=== PATIENT | female | born 1965 | race Caucasian/White ===

== ENCOUNTER 2022-04-03 08:32 | Emergency (ER) | payer MEDICAID ==
[~2022-04-03] VITALS: Ht 165.1 cm; Wt 54.5 kg
[2022-04-03 08:34] VITALS: BP 130/61
[2022-04-03] MEDS ORDERED: acetaminophen 325mg tablet PO ONE (10:20)
[2022-04-03 12:44] LABS: BASOPHILS # (AUTO) 0.1 X10'3 (0-0.2); BASOPHILS % (AUTO) 0.8 % (0-1); EOSINOPHILS # (AUTO) 0.1 X10'3 (0-0.9); EOSINOPHILS % (AUTO) 0.5 % (0-6); HEMOGLOBIN 11.1 g/dl (12.0-16.0); LYMPHOCYTES # (AUTO) 2.3 X10'3 (1.1-4.8); LYMPHOCYTES % (AUTO) 17.6 % (21-51); MEAN CORPUSCULAR HEMOGLOBIN 32.7 PG (27.0-31.0); MEAN CORPUSCULAR HGB CONC 32.6 g/dL (33.0-36.5); MEAN CORPUSCULAR VOLUME 100.1 FL (78-98); MONOCYTES # (AUTO) 1.6 X10'3 (0-0.9); MONOCYTES % (AUTO) 12.5 % (2-12); NEUTROPHILS % (AUTO) 68.6 % (42-75); PLATELET COUNT 352 X10'3 (140-440); RED CELL DISTRIBUTION WIDTH 13.4 % (11.5-14.5); WHITE BLOOD COUNT 13.1 X10'3 (4.5-11.0)
[2022-04-03 13:53] LABS: ALANINE AMINOTRANSFERASE 38 U/L (12-78); ALBUMIN 2.7 G/DL (3.4-5.0); ALBUMIN/GLOBULIN RATIO 0.6 (1.1-1.5); ALKALINE PHOSPHATASE 85 IU/L (46-116); ANION GAP 9 (8-16); ASPARTATE AMINO TRANSFERASE 26 U/L (10-37); BILIRUBIN,TOTAL 0.3 MG/DL (0.1-1.0); BLOOD UREA NITROGEN 14 MG/DL (7-18); BUN/CREATININE RATIO 21.9 (6.6-38.0); CALCIUM 8.9 MG/DL (8.5-10.1); CHLORIDE 101 MMOL/L (99-107); CREATININE 0.64 MG/DL (0.40-0.90); GLUCOSE 105 MG/DL (70-104); POTASSIUM 3.9 MMOL/L (3.5-5.1); SODIUM 133 MMOL/L (135-145); TOTAL CARBON DIOXIDE 23.1 MMOL/L (24-32); TOTAL PROTEIN 7.3 G/DL (6.4-8.2); eGFR > 90 ML/MIN
== END 2022-04-03 14:14 | disposition home or self-care (01) ==
LOC: ER 08:33
DX: R09.89 Other specified symptoms and signs involving the circulatory and respiratory systems (principal); R53.81 Other malaise; H92.02 Otalgia, left ear; R07.89 Other chest pain
CPT/HCPCS: 36415; 71045; 80053; 84484; 85025; 93005; 99285

== ENCOUNTER 2022-04-05 08:48 | Emergency (ER) | payer MEDICAID ==
[~2022-04-05] VITALS: Ht 165.1 cm; Wt 54.0 kg
[2022-04-05 08:59] VITALS: BP 119/92
[2022-04-05] MEDS ORDERED: acetaminophen 325mg tablet PO ONE (10:40)
== END 2022-04-05 11:10 | disposition home or self-care (01) ==
LOC: ER 08:48
DX: J06.9 Acute upper respiratory infection, unspecified (principal); Z20.822 Contact with and (suspected) exposure to COVID-19; B97.89 Other viral agents as the cause of diseases classified elsewhere
CPT/HCPCS: 87502; 87503; 87635; 99283; C9803

== ENCOUNTER 2022-04-10 07:34 | Emergency (ER) | payer MEDICAID ==
[~2022-04-10] VITALS: Ht 165.1 cm; Wt 56.8 kg
[2022-04-10 08:24] VITALS: BP 92/67
== END 2022-04-10 11:05 | disposition home or self-care (01) ==
LOC: ER 07:34
DX: B34.9 Viral infection, unspecified (principal)
CPT/HCPCS: 99282

== ENCOUNTER 2022-05-13 09:41 | Emergency (ER) | payer MEDICAID ==
[~2022-05-13] VITALS: Ht 165.1 cm; Wt 59.1 kg
[2022-05-13 10:01] VITALS: BP 118/73
[2022-05-13] MEDS ORDERED: LORA-269 PO (11:02)
[2022-05-13] MEDS ORDERED: DULO-31 PO (11:02)
[2022-05-13] MEDS ORDERED: FLUT16SP2 BOTHNARES (13:01)
== END 2022-05-13 11:35 | disposition home or self-care (01) ==
LOC: ER 09:41
DX: F10.10 Alcohol abuse, uncomplicated (principal); R09.81 Nasal congestion; F17.200 Nicotine dependence, unspecified, uncomplicated; Z72.89 Other problems related to lifestyle; Z79.899 Other long term (current) drug therapy; Y90.9 Presence of alcohol in blood, level not specified
CPT/HCPCS: 99283

== ENCOUNTER 2022-05-26 12:48 | Emergency (ER) | payer MEDICAID ==
[~2022-05-26 12:48] MED LIST: DULO-31 PO; FLUT16SP2 BOTHNARES; LORA-269 PO
== END 2022-05-26 13:47 | disposition left against medical advice (07) ==
LOC: ER 12:49
DX: Z00.00 Encounter for general adult medical examination without abnormal findings (principal); F10.10 Alcohol abuse, uncomplicated; Z79.899 Other long term (current) drug therapy; Z53.21 Procedure and treatment not carried out due to patient leaving prior to being seen by health care provider; Y90.9 Presence of alcohol in blood, level not specified

== ENCOUNTER 2022-05-28 05:54 | Emergency (ER) | payer MEDICAID ==
[~2022-05-28] VITALS: Ht 165.1 cm; Wt 54.9 kg
[2022-05-28 06:08] VITALS: BP 163/93
[2022-05-28] MEDS ORDERED: acetaminophen 325mg tablet PO ONE (07:25)
[2022-05-28] MEDS ORDERED: azithromycin 250mg tablet PO ONE (07:25)
--- NOTE | 2022-05-28 07:51 | NUR ---
Meal and sweats provided to patient.
== END 2022-05-28 07:56 | disposition home or self-care (01) ==
LOC: ER 05:54
DX: J06.9 Acute upper respiratory infection, unspecified (principal); F17.200 Nicotine dependence, unspecified, uncomplicated; F10.10 Alcohol abuse, uncomplicated; Z59.00 Homelessness unspecified; Y90.9 Presence of alcohol in blood, level not specified
CPT/HCPCS: 99283

== ENCOUNTER 2022-05-31 16:01 | Emergency (ER) | payer MEDICAID | END 2022-05-31 17:05 | disposition left against medical advice (07) | LOC: ER 16:03 | DX: M25.539 Pain in unspecified wrist (principal); Z53.21 Procedure and treatment not carried out due to patient leaving prior to being seen by health care provider ==

== ENCOUNTER 2022-06-03 18:41 | Emergency (ER) | payer MEDICAID | END 2022-06-03 20:41 | disposition left against medical advice (07) | LOC: ER 18:41 | DX: M79.603 Pain in arm, unspecified (principal); Z53.21 Procedure and treatment not carried out due to patient leaving prior to being seen by health care provider ==

== ENCOUNTER 2022-06-06 11:34 | Emergency (ER) | payer MEDICAID ==
[~2022-06-06] VITALS: Ht 162.6 cm; Wt 54.5 kg
[2022-06-06 11:58] VITALS: BP 108/49
== END 2022-06-06 13:31 | disposition left against medical advice (07) ==
LOC: ER 11:35
DX: R50.9 Fever, unspecified (principal); Z53.21 Procedure and treatment not carried out due to patient leaving prior to being seen by health care provider

== ENCOUNTER 2022-06-12 00:14 | Emergency (ER) | payer MEDICAID | END 2022-06-12 00:47 | disposition left against medical advice (07) | LOC: ER 00:14 | DX: Z00.8 Encounter for other general examination (principal); Z53.21 Procedure and treatment not carried out due to patient leaving prior to being seen by health care provider ==

== ENCOUNTER 2022-07-03 05:13 | Emergency (ER) | payer MEDICAID ==
[~2022-07-03] VITALS: Ht 165.1 cm; Wt 63.6 kg
[2022-07-03 05:16] VITALS: BP 157/98
--- NOTE | 2022-07-03 13:22 | NUR ---
PT WAS NOT IN LOBBY x3, PT WAS DEPARTED AT 1058 BY NORMA Hankins RN. PROVIDER NOTIFIED AND NO FURTHER ACTION ORDERED
== END 2022-07-03 10:58 | disposition left against medical advice (07) ==
LOC: ER 05:13
DX: R10.9 Unspecified abdominal pain (principal); Z53.21 Procedure and treatment not carried out due to patient leaving prior to being seen by health care provider
CPT/HCPCS: 99281

== ENCOUNTER 2022-07-13 17:59 | Emergency (ER) | payer MEDICAID ==
[~2022-07-13] VITALS: Ht 165.1 cm; Wt 68.2 kg
[2022-07-13 18:05] VITALS: BP 132/73
== END 2022-07-13 20:12 | disposition left against medical advice (07) ==
LOC: ER 18:01
DX: R07.81 Pleurodynia (principal); H57.11 Ocular pain, right eye; Z88.1 Allergy status to other antibiotic agents; Z79.899 Other long term (current) drug therapy
CPT/HCPCS: 71045; 99283